=== PATIENT | male | born 1950 | race Caucasian/White ===

== ENCOUNTER 2020-09-07 18:31 | Observation (INO) | payer OTHER ==
[~2020-09-07] VITALS: Ht 185.4 cm; Wt 90.0 kg
--- NOTE | 2020-09-07 18:45 | NUR ---
PT TO ROOM 16 VIA WHEELCHAIR. BEDSIDE TRIAGE COMPLETED
--- NOTE | 2020-09-07 19:45 | NUR ---
NO CHANGE IN EXAM. LABS PENDING. NAD.
[2020-09-07 20:19] LABS: HEMATOCRIT 44.5 % (39.0-50.0); HEMOGLOBIN 14.9 g/dl (14.0-18.0); IMMATURE GRANULOCYTES 0.6 % (0.0-5.0); MEAN CORPUSCULAR HGB 30.7 pG CALC (26.0-32.0); MEAN CORPUSCULAR HGB CONC 33.5 g/dL CAL (32.0-36.0); NEUT# 10.84 thou/uL (1.82-7.42); RED BLOOD COUNT 4.85 mill/uL (4.70-6.10); RED CELL DISTRI WIDTH 13.2 % (11.5-15.5)
[2020-09-07 20:21] LABS: MEAN CELL VOLUME 91.8 fL CALC (80.0-100.0)
[2020-09-07 20:40] LABS: D-DIMER 0.6 mg/L (0.19-0.60)
[2020-09-07 20:43] LABS: ALKALINE PHOSPHATASE 69 u/l (38-126); ANION GAP 16 (6-22 (CALC)); BUN 20 mg/dL (8-23); BUN/CREATININE RATIO 22 (12-20 (CALC)); CARBON DIOXIDE 24 mmol/l (22-30); CHLORIDE 98 mmol/l (95-108); CREATININE 0.9 mg/dL (0.7-1.3); GFR > 60 ML/MIN (>=60 (CALC)); GFR FOR AFR.AMER. > 60 ML/MIN (>=60 (CALC)); LIPASE 92 u/l (23-300); POTASSIUM 4.6 mmol/l (3.5-5.1); SGOT/AST 74 u/l (19-48); SODIUM 134 mmol/l (137-146); TOTAL PROTEIN 7.6 g/dL (6.3-8.2)
--- NOTE | 2020-09-07 20:45 | NUR ---
RESTING QUIETLY. AWAITING TEST RESULTS.
[2020-09-07 20:47] LABS: ACT PARTIAL THROMBO TIME 30.3 SECONDS (20.0-32.5)
[2020-09-07 20:54] LABS: BILIRUBIN, TOTAL 0.5 mg/dL (0.0-1.4); C-REACTIVE PROTEIN 23.9 mg/dL (0-0.9); PROTHROMBIN TIME 10.4 SECONDS (9.0-12.5)
--- NOTE | 2020-09-07 21:49 | NUR ---
DISCUSSED CURRENT ADMISSION AND MEDICATION PLANS.
[2020-09-07 21:56] LABS: URINE BILIRUBIN - DIPSTICK NEGATIVE (NEGATIVE); URINE BLOOD DIPSTICK NEGATIVE (NEGATIVE); URINE COLOR YELLOW; URINE GLUCOSE - DIPSTICK >=1000 mg/dL (NEGATIVE); URINE KETONE 15 mg/dL (NEGATIVE); URINE LEUK ESTERASE NEGATIVE (NEGATIVE); URINE NITRITE - DIPSTICK NEGATIVE (Negative); URINE PROTEIN - DIPSTICK NEGATIVE (NEG-TRACE); URINE UROBILINOGEN - DIPSTICK 0.2 E.U./dL (0.2)
--- NOTE | 2020-09-07 22:15 | NUR ---
RESTING QUIETLY AWAITING DISPO.
--- NOTE | 2020-09-07 22:50 | NUR ---
Admission Note Report Given to: GEOFF JIMENEZ Transported by: X Wheelchair Stretcher Transported with: X Nurse Transporter X Patent IV O2 X Assistant Store Manager Location: ICU X [facility]
--- NOTE | 2020-09-07 22:50 | NUR ---
TELEPHONE REPORT RECEIVED FROM Mary AIKEN RN IN ED. ROOM 289 PREPARED TO RECEIVE PT FROM ED.
--- NOTE | 2020-09-07 23:00 | NUR ---
PT ARRIVES TO UNIT @ 2300 VIA WC, ACCOMPANIED BY Mary AIKEN RN. ADMITTED TO ROOM 289.
--- NOTE | 2020-09-07 23:45 | NUR ---
ADMISSION AND PHYSICAL ASSESMENT COMPLETE. PLAN OF CARE REVIEWED. PT VERBALIZES UNDERSTANDING AND DENIES QUESTIONS. FROZEN DINNER TRAY PREPARED AND SERVED TO PT. PT DENIES FURTHER NEEDS. CALL TODD WITHIN REACH. AGREES TO CALL PRN.
[2020-09-08] VITALS: BP 135/84
[2020-09-08 04:00] VITALS: BP 124/55
--- NOTE | 2020-09-08 04:23 | NUR ---
PT LAYING IN BED WITH EYES CLOSED, NO APPARENT DISTRESS, APPEARS TO BE SLEEPING COMFORTABLY. RESPIRATIONS REGULAR AND UNLABORED. CALL TODD REMAINS WITHIN REACH.
[2020-09-08 05:26] LABS: MEAN CELL VOLUME 93.2 fL CALC (80.0-100.0); MEAN CORPUSCULAR HGB 31.1 pG CALC (26.0-32.0); MEAN CORPUSCULAR HGB CONC 33.3 g/dL CAL (32.0-36.0); NEUT# 9.62 thou/uL (1.82-7.42); RED BLOOD COUNT 5.15 mill/uL (4.70-6.10); RED CELL DISTRI WIDTH 13.2 % (11.5-15.5)
[2020-09-08 05:57] LABS: ALKALINE PHOSPHATASE 79 u/l (38-126); BILIRUBIN, TOTAL 0.6 mg/dL (0.0-1.4); BUN 18 mg/dL (8-23); BUN/CREATININE RATIO 24 (12-20 (CALC)); CARBON DIOXIDE 21 mmol/l (22-30); CHLORIDE 100 mmol/l (95-108); CREATININE 0.8 mg/dL (0.7-1.3); GFR > 60 ML/MIN (>=60 (CALC)); GFR FOR AFR.AMER. > 60 ML/MIN (>=60 (CALC)); SGOT/AST 88 u/l (19-48); SODIUM 136 mmol/l (137-146); TOTAL PROTEIN 7.4 g/dL (6.3-8.2)
[2020-09-08 05:58] LABS: ANION GAP 20 (6-22 (CALC))
[2020-09-08 06:09] LABS: POTASSIUM 5.4 mmol/l (3.5-5.1)
[2020-09-08 07:30] VITALS: BP 147/61
--- NOTE | 2020-09-08 07:30 | NUR ---
PATIENT IN BED ALERT AND ORIENTED AT THIS TIME DENIES ANY NEEDS OR PAIN. MADELINE IS NOT ON O2 CURRENTLY AND HIS SPO2 ON ROOM AIR IS 92%. PATIENT TELE MONITOR IS IN PLACE CALL LIGHT WITHIN REACH AND SIDERAILS UP X 2.
--- NOTE | 2020-09-08 11:57 | NUR ---
PATIENT SITTING UP AT BEDSIDE DENIES ANY PAIN AT THIS TIME OR NEEDS. CALL LIGHT WITHIN REACH SIDERAILS UP X 2.
[2020-09-08] MEDS ORDERED: DEXAMETHASON6 MG PO (12:48)
[2020-09-08] MEDS ORDERED: ASPIRIN 81 LOW81 MG PO (12:48)
[2020-09-08] MEDS ORDERED: ZITHROMAX250 MG PO (12:48)
[2020-09-08] MEDS ORDERED: AMOX/K CLAV875 M1 PO (12:57)
[2020-09-08] MEDS ORDERED: METFORMIN HYD1000 MG PO (13:25)
[2020-09-08] MEDS ORDERED: GLIPIZIDE ER10 M1 PO (13:28)
[2020-09-08] MEDS ORDERED: LEVOTHYROXIN50 MCG PO (13:29)
[2020-09-08] MEDS ORDERED: DOFETILIDE500 MCG PO (13:31)
[2020-09-08] MEDS ORDERED: LIPITOR20 MG PO (13:31)
[2020-09-08] MEDS ORDERED: LISINOPRIL2.5 MG PO (13:32)
--- NOTE | 2020-09-08 14:00 | NUR ---
PATIENT DISCHARGED AT THIS TIME. PATIENT VERBALIZES UNDERSTANDING OF D/C INSTRUCTIONS.
--- NOTE | 2020-09-08 15:04 | NUR ---
Discharge instructions given. Patient verbalizes understanding of same. Discharged in stable condition via Wheelchair to Home with spouse. All belongings sent with pt.
== END 2020-09-08 15:03 | disposition home or self-care (01) | DRG 177 ==
LOC: ED 18:31 → ED-I 19:44 → ED 22:19 → MS2 22:20
PROVIDERS: ADMIT Internal Medicine; ATTEND Internal Medicine
DX: U07.1 COVID-19 (principal); J12.89 Other viral pneumonia; R53.83 Other fatigue; R53.1 Weakness; I10 Essential (primary) hypertension; E11.9 Type 2 diabetes mellitus without complications; I48.91 Unspecified atrial fibrillation
CPT/HCPCS: J1650; Q9967

== ENCOUNTER 2020-09-13 10:25 | Observation (INO) | payer OTHER ==
[~2020-09-13] VITALS: Ht 185.4 cm; Wt 80.7 kg
[~2020-09-13 10:25] MED LIST: AMOX/K CLAV875 M1 PO; ASPIRIN 81 LOW81 MG PO; DEXAMETHASON6 MG PO; DOFETILIDE500 MCG PO; GLIPIZIDE ER10 M1 PO; LEVOTHYROXIN50 MCG PO; LIPITOR20 MG PO; LISINOPRIL2.5 MG PO; METFORMIN HYD1000 MG PO; ZITHROMAX250 MG PO
--- NOTE | 2020-09-13 10:36 | NUR ---
PATIENT REFUSED WHEELCHAIR AND AMBULATED TO ROOM FOR BEDSIDE TRIAGE.
[2020-09-13 11:10] LABS: HEMATOCRIT 46.4 % (39.0-50.0); HEMOGLOBIN 15.6 g/dl (14.0-18.0); IMMATURE GRANULOCYTES 1.6 % (0.0-5.0); MEAN CORPUSCULAR HGB 30.6 pG CALC (26.0-32.0); MEAN CORPUSCULAR HGB CONC 33.6 g/dL CAL (32.0-36.0); NEUT# 10.65 thou/uL (1.82-7.42); RED BLOOD COUNT 5.1 mill/uL (4.70-6.10); RED CELL DISTRI WIDTH 12.7 % (11.5-15.5)
--- NOTE | 2020-09-13 11:12 | NUR ---
PT STATES THAT HE IS COVID + AND HAS BEEN EXPERIANCING INCREASE SOB. PT AFIBRILE WITH CRACKLES IN LOWER LUNGS BILAT. AOX4. DENIES ANY COUGH OR OTHER S/S EXCEPT FOR A FEVER A FEW DAYS AGO. CALL LIGHT WITHIN REACH. AT BEDSIDE. WILL CONTINUE TO MONITOR
[2020-09-13] MEDS ORDERED: JARDIANCE25 MG PO (11:26)
[2020-09-13] MEDS ORDERED: LIPITOR40 M1 PO (11:26)
[2020-09-13] MEDS ORDERED: ZINC50 M1 PO (11:26)
[2020-09-13] MEDS ORDERED: METOPROL TAR25 MG PO (11:27)
[2020-09-13] MEDS ORDERED: CHOLECALCIF (11:27)
[2020-09-13 11:30] LABS: ALBUMIN 3.9 g/dL (3.2-5.0); ALKALINE PHOSPHATASE 74 u/l (38-126); BUN 27 mg/dL (8-23); BUN/CREATININE RATIO 32 (12-20 (CALC)); CARBON DIOXIDE 19 mmol/l (22-30); CHLORIDE 102 mmol/l (95-108); CREATININE 0.8 mg/dL (0.7-1.3); GFR > 60 ML/MIN (>=60 (CALC)); GFR FOR AFR.AMER. > 60 ML/MIN (>=60 (CALC)); SGOT/AST 76 u/l (19-48); SODIUM 134 mmol/l (137-146); TOTAL PROTEIN 7.5 g/dL (6.3-8.2)
[2020-09-13 11:33] LABS: ANION GAP 17 (6-22 (CALC))
[2020-09-13 11:40] LABS: MYOGLOBIN 62 ng/mL (0 - 121)
--- NOTE | 2020-09-13 12:20 | NUR ---
MD AT BEDSIDE TO DISCUSS RESULTS AND PLAN OF CARE.
[2020-09-13 12:29] LABS: URINE BILIRUBIN - DIPSTICK NEGATIVE (NEGATIVE); URINE BLOOD DIPSTICK NEGATIVE (NEGATIVE); URINE COLOR YELLOW; URINE GLUCOSE - DIPSTICK >=1000 mg/dL (NEGATIVE); URINE KETONE NEGATIVE (NEGATIVE); URINE LEUK ESTERASE NEGATIVE (NEGATIVE); URINE NITRITE - DIPSTICK NEGATIVE (Negative); URINE PROTEIN - DIPSTICK NEGATIVE (NEG-TRACE); URINE UROBILINOGEN - DIPSTICK 0.2 E.U./dL (0.2)
--- NOTE | 2020-09-13 13:30 | NUR ---
THE FIRST BOLUS OF FLUID HAS BEEN COMPLETED AND SECOND LACTIC WAS DRAWN. RESULTS ARE THAT LACTIC HAS DECREASED. PT UPDATED ON PROGRESS AND PLAN OF CARE. HE IS AWARE OF PENDING ADMISSION.
--- NOTE | 2020-09-13 14:29 | NUR ---
GAVE REPORT TO JUAN
--- NOTE | 2020-09-13 14:39 | NUR ---
PT HAS ARRIVED VIA STRETCHER WITH STAFF.
--- NOTE | 2020-09-13 14:40 | NUR ---
PT TRANSPORTED TO MED SURG VIA STRETCHER STABLE AND IN NO DISTRESS. CARE ASSUMED TO JUAN. Admission Note Report Given to: JUAN Transported by: Wheelchair X Stretcher Transported with: X Nurse Transporter X Patent IV O2 X Sas Etl Developer Location: ICU X [facility]
--- NOTE | 2020-09-13 14:45 | NUR ---
ASSESSMENT IS COMPLETED: IV SITE IS FREE FROM REDNESS OR EDEMA. HR IS REG,PULSES ARE STRONG X4, ABD IS SOFT WITH ACTIVE BS, BREATH SOUNDS ARE DIMINISHED AND CRACKLES. TELE MONITOR IN PLACE.,
[2020-09-13 15:00] VITALS: BP 146/82
--- NOTE | 2020-09-13 15:22 | NUR ---
PT WAS OPENING A BOTTLE OF MOUTHWASH WITH HIS TEETH AND SLICED HIS BOTTOM LIP A LITTLE BIT.
--- NOTE | 2020-09-13 17:04 | NUR ---
BLEEDING HAS DECREASED. ON HIS LIP INFORMED ARPN RE: SPLIT LIP. NOT DEEP. JUST TOP LAYER SKIN.
--- NOTE | 2020-09-13 19:13 | NUR ---
FAMILY CALLED AND INQUIRED ABOUT PT AND ASKING ABOUT THE LIP. EXPLAINED FOR THE PT TO KEEP PRESSURE ON HIS LIP TO STOP THE BLEEDING. "NOT OOZING JUST SMALL AMOUNTS".
[2020-09-13 20:00] VITALS: BP 160/84
--- NOTE | 2020-09-13 21:00 | NUR ---
PATIENT RESTING IN BED AT THIS ITME-AWAKE ALERT AND ORIENTED WITH TISSUE TO HIS BOTTOM LIP-INJURED HIS LIP OPENING THE MOUTHWASH PER PATIENT. PROVIDED PATIENT WITH GAUIZE PAD AND ICE PACK TO BE USED FOR LOWEWR LIP. PATIENT IS AWAKE ALERT AND ORIENTEDX3. NO OTHER COMPLAINTS OTHER THAN HIS LOWER LIP. PATIENT WITH O2 SAT OF 93-94% ON ROOM AIR. WAS HOSPITALIZED LAST WEEK WITH COVID AND IS BACK BECAUSE HIS THOUGHT HIS O2 SATS AT HOME WERE TOO LOW. PATIENT STATES THAT HE HAS BEEN WALKING DAILY AND DOES BECOME SOB SOMETIMES WHEN HE GET HOME AFTER WALKING A MILE. TELE MONITOR IN PLACE. LUNGS WITH CRACKLES IN THE BASES. NO COUGH. VOIDING QS YELLOW URINE IN URINAL. STATES THAT HE HAD BM TODAY. BLOOD SUGAR WAS 294 TONIGHT. SAFETY PRECAUTIONS REINFORCED. CALL LIGHT IN REACH. WILL CONT TO MONITOR.
--- NOTE | 2020-09-13 23:15 | NUR ---
PATIENT RESTING IN BED-CONT TO USE COLD PACK TO LOWER LIP FOR SMALL AMT OF BLEEDING. COVERED WITH HUMALOG INSULIN 5UNITS PER SLIDING SCALE COVERAGE ORDER. CALL LIGHT IN REACH. WILL CONT TO MONITOR.
[2020-09-14] VITALS: BP 169/82
--- NOTE | 2020-09-14 01:00 | NUR ---
PATIENT APPEARS SLEEPING AT THIS TIME WITH EYES CLOSED AND RESP EVEN AND UNLABORED. TELE MONITOR IN PLACE. SALINE LOCK TO LEFT AC INTACT. CALL LIGHT IN REACH. WILL CONT TO MONITOR.
[2020-09-14 04:00] VITALS: BP 169/83
--- NOTE | 2020-09-14 04:00 | NUR ---
PATIENT RESTING IN BED-APPEARS SLEEPING AT THIS TIME. RESPS ARE EVEN AND UNLABORED. TELE MONITOR IN PLACE. CALL LIGHT IN REACH. WILL CONT TO MONITOR.
[2020-09-14 06:07] LABS: HEMATOCRIT 42.8 % (39.0-50.0); HEMOGLOBIN 14.7 g/dl (14.0-18.0); IMMATURE GRANULOCYTES 2.1 % (0.0-5.0); MEAN CELL VOLUME 90.7 fL CALC (80.0-100.0); MEAN CORPUSCULAR HGB 31.1 pG CALC (26.0-32.0); MEAN CORPUSCULAR HGB CONC 34.3 g/dL CAL (32.0-36.0); NEUT# 9.04 thou/uL (1.82-7.42); RED BLOOD COUNT 4.72 mill/uL (4.70-6.10); RED CELL DISTRI WIDTH 12.5 % (11.5-15.5)
[2020-09-14 06:29] LABS: BUN 26 mg/dL (8-23); BUN/CREATININE RATIO 34 (12-20 (CALC)); C-REACTIVE PROTEIN 1.1 mg/dL (0-0.9); CHLORIDE 102 mmol/l (95-108); CREATININE 0.8 mg/dL (0.7-1.3); GFR > 60 ML/MIN (>=60 (CALC)); GFR FOR AFR.AMER. > 60 ML/MIN (>=60 (CALC)); POTASSIUM 4.6 mmol/l (3.5-5.1); SODIUM 135 mmol/l (137-146)
[2020-09-14 06:30] LABS: ANION GAP 12 (6-22 (CALC)); CARBON DIOXIDE 26 mmol/l (22-30)
[2020-09-14 07:52] VITALS: BP 147/72
--- NOTE | 2020-09-14 07:52 | NUR ---
RECIEVED REPORT FROM GEOFF GUTIÉRREZ. PT RESTING IN SEMI FOWLERS POSITION UPON ENTERING ROOM. INTRODUCED SELF TO PT AND DISCUSSED POC. PT IS A/O X3. ASSESSMENT AND VITALS OBATINED. BP 147/72, HR 64, O2 94% ON ROOM AIR. RESPIRATIONS ARE EVEN AND UNLABORED. LUNG SOUNDS CLEAR. HEART RHYTHM NORMAL WITH TELE IN PLACE. BOWEL SOUNDS ACTIVE IN ALL QUADRANTS. #20G IN LAC FLUSHED, SITE APPEARS HEALTHY AND PATENT. RADIAL AND PEDAL PULSES STRONG. SKIN WARM AND INTACT. PT DENIES OF ANY PAINS. I.S AT BEDSIDE.PT EDUCATED ON USAGE. PT VERBALIZED UNDERSTANDING. ALL SFAETY AND ISOLATION PRECAUTIONS ARE IN PLACE. WILL CONTINUE TO MONITOR
[2020-09-14 11:15] VITALS: BP 136/79
--- NOTE | 2020-09-14 11:21 | NUR ---
WALK TEST COMPLETED. PT O2 SAT 91% ON ROOM AIR AT REST. O2 SAT 87% WHILE WALKING WITH NO OXYGEN. 2L NC APPLIED. PT SAT 96% ON 2L NC AT REST. RESPIRATIONS ARE EVEN AND UNLABORED. PT COMPLAINS OF "SLIGHT SOB." PT DENIES OF ANY PAINS OR DISCOMFORTS AT THIS TIME. ALL SAFETY AND ISOLATION PRECAUTIONS ARE IN PLACE WITH CALL LIGHT IN REACH. WILL CONTINUE TO MONITOR.
--- NOTE | 2020-09-14 12:10 | NUR ---
UPDATE PROVIDED TO , PASSCODE PROVIDED.
[2020-09-14] MEDS ORDERED: OXY1 (14:57)
--- NOTE | 2020-09-14 15:31 | NUR ---
DESIGN ARCHITECT NOTFIED BY THAT PT IS UNABLE TO GET OXYGEN FROM [facility]. [facility] DESIGN ARCHITECT TO BE NOTFIED FROM WHEN OXYGEN IS OBTAINED. PT AND UPDATE OF D/C. VERBALIZATION FROM BOTH. ALL SAFETY PRECAUTIONS IN PLACE WITH CALL LIGHT IN REACH. WILL CONTINUE TO MONITOR.
[2020-09-14 16:00] VITALS: BP 165/82
--- NOTE | 2020-09-14 16:34 | NUR ---
KNIFE GRINDER INFORMED THAT PT AGREED TO PAY FOR OXYGEN OUT OF POCKET AND FOLLOW UP WITH [facility] FOR [facility] AND [facility]. PT EDUCATED ON DISCHARGE INSTRUCTIONS AND OXYGEN. PT VERBALIZED UNDERSTANDING.IV REMOVED WITH CATHATER STILL INTACT. PT TOELRATED WELL. TELE MONITORING REMOVED. ER NOTIFIED. WAITING FOR TRANSPORTATION. WILL CONTINUE TO MONITOR
--- NOTE | 2020-09-14 17:23 | NUR ---
Discharge instructions given. Patient verbalizes understanding of same. Discharged in stable condition via Wheelchair to Home with staff. All belongings sent with pt. PT DISCHARGED IN STABLE CONDITION VIA WHEELCHAIR ACCOMPAINED BY STAFF WITH ALL BELONGINGS AND OXYGEN,
== END 2020-09-14 17:25 | disposition home health service (06) | DRG 177 ==
LOC: ED 10:25 → ED-I 11:05 → ED 13:30 → MS2 13:31
PROVIDERS: Emergency Medicine; ADMIT Internal Medicine; ATTEND Internal Medicine
DX: U07.1 COVID-19 (principal); J12.82 Pneumonia due to coronavirus disease 2019; R09.02 Hypoxemia; R53.1 Weakness; I10 Essential (primary) hypertension; E11.9 Type 2 diabetes mellitus without complications; I48.91 Unspecified atrial fibrillation; Z79.84 Long term (current) use of oral hypoglycemic drugs
CPT/HCPCS: J1650

== ENCOUNTER 2021-11-06 12:57 | Emergency (ER) | payer OTHER ==
[~2021-11-06] VITALS: Ht 185.4 cm; Wt 88.6 kg
[~2021-11-06 12:57] MED LIST changes: +CHOLECALCIF; +JARDIANCE25 MG PO; +LIPITOR40 M1 PO; +METOPROL TAR25 MG PO; +OXY1; +ZINC50 M1 PO
[2021-11-06] MEDS ORDERED: KEFLEX500 MG PO (14:11)
[2021-11-06 14:26] VITALS: BP 142/70
== END 2021-11-06 14:26 | disposition home or self-care (01) | DRG 605 ==
LOC: ED 12:57
PROC: 0HQ1XZZ Repair Face Skin, External Approach (ICD-10-PCS; principal; 2021-11-06)
DX: S01.81XA Laceration without foreign body of other part of head, initial encounter (principal); I10 Essential (primary) hypertension; E11.9 Type 2 diabetes mellitus without complications; I48.91 Unspecified atrial fibrillation; Y93.H2 Activity, gardening and landscaping; Y92.007 Garden or yard of unspecified non-institutional (private) residence as the place of occurrence of the external cause; Z79.84 Long term (current) use of oral hypoglycemic drugs; W20.8XXA Other cause of strike by thrown, projected or falling object, initial encounter

== ENCOUNTER 2022-09-13 11:15 | Emergency (ER) | payer OTHER ==
[~2022-09-13] VITALS: Ht 185.4 cm; Wt 86.0 kg
[~2022-09-13 11:15] MED LIST changes: +KEFLEX500 MG PO
[2022-09-13] MEDS ORDERED: KEFLEX500 MG PO (12:54)
[2022-09-13 13:18] VITALS: BP 103/57
== END 2022-09-13 13:20 | disposition home or self-care (01) | DRG 605 ==
LOC: ED 11:15
DX: S60.511A Abrasion of right hand, initial encounter (principal); S61.411A Laceration without foreign body of right hand, initial encounter; W29.3XXA Contact with powered garden and outdoor hand tools and machinery, initial encounter

== ENCOUNTER 2022-11-25 05:06 | Observation (INO) | payer OTHER ==
[2022-11-25] VITALS (20 sets, daily range): BP systolic 102–147; BP diastolic 41–65
[~2022-11-25] VITALS: Ht 185.4 cm; Wt 90.6 kg
--- NOTE | 2022-11-25 05:06 | NUR ---
PT ARRIVED VIA EMS, IN ROOM 12 FOR TRI. PT REPORT THAT HE FELL AND IS UNABLE TO RECALL WHAT HAD HAPPENED OR WHAT CAUSED THE FALL.
[2022-11-25 05:51] LABS: BASO% 0.1 % (0-3); EOS% 2.3 % (0-8); HEMATOCRIT 42.7 % (39.0-50.0); HEMOGLOBIN 13.3 g/dl (14.0-18.0); IMMATURE GRANULOCYTES 0.3 % (0.0-5.0); LYMPH% 9.6 % (15-41); MEAN CORPUSCULAR HGB 26.1 pG CALC (26.0-32.0); MEAN CORPUSCULAR HGB CONC 31.1 g/dL CAL (32.0-36.0); MONO% 5.3 % (2-13); NEUT# 10.34 thou/uL (1.82-7.42); NEUT% 82.4 % (42-76); RED BLOOD COUNT 5.1 mill/uL (4.70-6.10); RED CELL DISTRI WIDTH 18.4 % (11.5-15.5)
[2022-11-25 05:52] LABS: MEAN CELL VOLUME 83.7 fL CALC (80.0-100.0)
[2022-11-25 06:07] LABS: ALBUMIN 4.6 g/dL (3.2-5.0); ALKALINE PHOSPHATASE 77 u/l (38-126); ANION GAP 15 (6-22 (CALC)); BILIRUBIN, TOTAL 0.6 mg/dL (0.2-1.3); BUN 27 mg/dL (8-23); BUN/CREATININE RATIO 28 (12-20 (CALC)); CARBON DIOXIDE 24 mmol/l (22-30); CHLORIDE 102 mmol/l (95-108); ETHYL ALCOHOL 0 mg/dl (0-30); GFR FOR AFR.AMER. > 60 ML/MIN (>=60 (CALC)); GFR OTHER RACES > 60 ML/MIN (>=60 (CALC)); POTASSIUM 4.1 mmol/l (3.5-5.1); SGOT/AST 31 u/l (19-48); SODIUM 138 mmol/l (137-146); TOTAL PROTEIN 7.3 g/dL (6.3-8.2)
--- NOTE | 2022-11-25 06:10 | NUR ---
PT IN ROOM GETTING READY FOR DOCTOR TO REPAIR HIS LACERATION TO THE EYE. DOCTOR HAD TO STEP AWAY FOR A CODE CALL. PT AND UNDERSTANDS
--- NOTE | 2022-11-25 07:28 | NUR ---
PT TOLERATED PROCEDURE WELL, ICE PACK PROVIDED, PT IS RESTING WITH EYE CLOSED. VSS, NAD. IN ROOM WITH PT.
[2022-11-25] MEDS ORDERED: METOPROL TAR25 MG PO (07:53)
[2022-11-25] MEDS ORDERED: GABAPENTIN100 MG PO (07:54)
[2022-11-25] MEDS ORDERED: METFORMIN500 M2 PO (07:55)
--- NOTE | 2022-11-25 08:02 | NUR ---
at bedside. meds reconciled.
--- NOTE | 2022-11-25 08:19 | NUR ---
PT BROUGHT UP FROM ED. PT TRANSFERRED HIMSELF TO BED.
--- NOTE | 2022-11-25 08:19 | NUR ---
pt transferred to med surg. able to walk to bed from stretcher without assistance. bedside report given to rosalind.
--- NOTE | 2022-11-25 20:02 | NUR ---
PT AXO4 AT BEDSIDE, DENY ANY PAIN AT THE MOMENT, CALL LIGHT WITHIN REACHED REACHED, WILL CONT TO MONITOR
[2022-11-26 00:37] VITALS: BP 120/64
[2022-11-26 03:31] VITALS: BP 121/56
[2022-11-26 05:28] VITALS: BP 115/56
[2022-11-26 05:45] LABS: HEMATOCRIT 42.3 % (39.0-50.0); HEMOGLOBIN 13.4 g/dl (14.0-18.0); MEAN CELL VOLUME 84.3 fL CALC (80.0-100.0); MEAN CORPUSCULAR HGB 26.7 pG CALC (26.0-32.0); MEAN CORPUSCULAR HGB CONC 31.7 g/dL CAL (32.0-36.0); RED BLOOD COUNT 5.02 mill/uL (4.70-6.10); RED CELL DISTRI WIDTH 18.3 % (11.5-15.5)
[2022-11-26 05:54] LABS: ALBUMIN 4.6 g/dL (3.2-5.0); ALKALINE PHOSPHATASE 55 u/l (38-126); ANION GAP 14 (6-22 (CALC)); BILIRUBIN, TOTAL 0.8 mg/dL (0.2-1.3); BUN 26 mg/dL (8-23); BUN/CREATININE RATIO 27 (12-20 (CALC)); CARBON DIOXIDE 27 mmol/l (22-30); CHLORIDE 102 mmol/l (95-108); CREATININE 0.9 mg/dL (0.7-1.3); GFR FOR AFR.AMER. > 60 ML/MIN (>=60 (CALC)); GFR OTHER RACES > 60 ML/MIN (>=60 (CALC)); MAGNESIUM 2.3 mg/dL (1.6-2.3); POTASSIUM 4.7 mmol/l (3.5-5.1); SGOT/AST 38 u/l (19-48); SODIUM 138 mmol/l (137-146); TOTAL PROTEIN 7.2 g/dL (6.3-8.2)
--- NOTE | 2022-11-26 06:00 | NUR ---
PT SLEPT MOST OF THE NIGHT, VITALS STABLE, OZIEL LIGHT WITHIN REACHED, WILL CONT TO MONITOR
--- NOTE | 2022-11-26 07:30 | NUR ---
REPORT RECEIVED FROM NIGHT NURSE. PT AMBULATING TO BATHROOM INDEPENDENTLY; ALERT AND ORIENTED X 4. DENIES PAIN, BUT REPORTS TENDERNESS TO LEFT EYE; SWELLING AND PURPLE BRUISING AROUND SUTURES TO LEFT EYE. PT STATES THAT HE CAN BEGIN TO OPEN HIS EYE TODAY AND FEELS LIKE THERE IS IMPROVEMENT. WARM WASH CLOTH PROVIDED TO HELP CLEAN OUT EYE DRAININAGE. TELE IN PLACE. RESPIRATIONS EVEN AND UNLABORED. IV FLUIDS INFUSING AT 100 ML/HR; IV SITE APPEARS HEALTHY. PLAN OF CARE REVIEWED; PT ENCOURAGED TO VERBALIZE CONCERNS; STATES UNDERSTANDING. SAFETY MEASURES IN PLACE; CALL LIGHT WITHIN REACH.
[2022-11-26 09:40] VITALS: BP 131/64
[2022-11-26 10:15] VITALS: BP 119/53
--- NOTE | 2022-11-26 11:20 | NUR ---
REPORT RECEIVED FROM Elina FONTANA RN AT BEDSIDE. CARE OF PT ASSUMED AT THIS TIME. PT IN SHOWER.
--- NOTE | 2022-11-26 11:39 | NUR ---
PT BACK TO BED AFTER SHOWER. IV RECONNECTED. TELEMETRY RE-APPLIED. PT REQUESTING INFORMATION ABOUT DISCHARGE, DENIES ANY OTHER NEEDS AT THIS TIME. CALL TODD WITHIN REACH, AGREES TO CALL PRN.
--- NOTE | 2022-11-26 11:44 | NUR ---
DISCUSSED PT'S REQUEST FOR DISCHARGE WITH DR. MORAN.
[2022-11-26] MEDS ORDERED: LORTAB 5/3255 MG PO (12:00)
--- NOTE | 2022-11-26 12:30 | NUR ---
DISCHARGE INSTRUCTIONS REVIEWED VERBALLY WITH PT WITH A SUCCESFUL TEACH-BACK FROM PATIENT. PATIENT VERBALIZES UNDERSTANDING OF ALL PROVIDED INSTRUCTIONS AND DENIES QUESTIONS. PRINTED DISCHARGE PACKET PROVIDED. PT PENDING KNIFE OPERATOR FROM SPOUSE.
--- NOTE | 2022-11-26 12:54 | NUR ---
PHYSICAL SCRIPT PROVIDED BY DR. MORAN FOR HYDROCODONE. SCRIPT PHOTOCOPIED FOR CHART AND PROVIDED TO PT.
--- NOTE | 2022-11-26 12:59 | NUR ---
PT'S SPOUSE ARRIVES FOR PT. PT TAKEN DOWNTO LOBBY VIA WHEELCHAIR ACCOMPANIED BY Siddharth HOLLAND CNA AND SPOUSE. PT HAS ALL BELONGINGS AND DISCHARGE PAPERWORK.
== END 2022-11-26 13:00 | disposition home or self-care (01) | DRG 312 ==
LOC: ED 05:06 → ED-I 06:55 → ED 07:22 → MS2 07:23
PROVIDERS: Emergency Medicine; Internal Medicine; ADMIT Internal Medicine; ATTEND Internal Medicine
PROC: 0HQ1XZZ Repair Face Skin, External Approach (ICD-10-PCS; principal; 2022-11-25)
DX: R55 Syncope and collapse (principal); S01.111A Laceration without foreign body of right eyelid and periocular area, initial encounter; S00.83XA Contusion of other part of head, initial encounter; I10 Essential (primary) hypertension; E03.9 Hypothyroidism, unspecified; I48.91 Unspecified atrial fibrillation; E11.9 Type 2 diabetes mellitus without complications; W18.39XA Other fall on same level, initial encounter; Y92.009 Unspecified place in unspecified non-institutional (private) residence as the place of occurrence of the external cause; Z79.84 Long term (current) use of oral hypoglycemic drugs

== ENCOUNTER 2023-03-15 11:44 | Emergency (ER) | payer OTHER ==
[2023-03-15] VITALS (14 sets, daily range): BP systolic 125–150; BP diastolic 58–76
[~2023-03-15] VITALS: Ht 185.4 cm; Wt 86.2 kg
[~2023-03-15 11:44] MED LIST changes: +GABAPENTIN100 MG PO; +LORTAB 5/3255 MG PO; +METFORMIN500 M2 PO
[2023-03-15 12:54] LABS: URINE BILIRUBIN - DIPSTICK NEGATIVE (NEGATIVE); URINE BLOOD DIPSTICK NEGATIVE (NEGATIVE); URINE COLOR YELLOW; URINE GLUCOSE - DIPSTICK >=1000 mg/dL (NEGATIVE); URINE KETONE 15 mg/dL (NEGATIVE); URINE LEUK ESTERASE NEGATIVE (NEGATIVE); URINE PH 5.5 (4.5-8.0); URINE PROTEIN - DIPSTICK NEGATIVE (NEG-TRACE); URINE UROBILINOGEN - DIPSTICK 0.2 E.U./dL (0.2)
[2023-03-15 12:56] LABS: URINE NITRITE - DIPSTICK NEGATIVE (Negative)
[2023-03-15 12:56] LABS: BASO% 0.3 % (0-3); HEMATOCRIT 44.9 % (39.0-50.0); HEMOGLOBIN 14.4 g/dl (14.0-18.0); IMMATURE GRANULOCYTES 0.6 % (0.0-5.0); LYMPH% 31.8 % (15-41); MEAN CELL VOLUME 86.7 fL CALC (80.0-100.0); MEAN CORPUSCULAR HGB 27.8 pG CALC (26.0-32.0); MEAN CORPUSCULAR HGB CONC 32.1 g/dL CAL (32.0-36.0); NEUT# 5.12 thou/uL (1.82-7.42); NEUT% 52.3 % (42-76); RED BLOOD COUNT 5.18 mill/uL (4.70-6.10); RED CELL DISTRI WIDTH 15.1 % (11.5-15.5)
[2023-03-15 13:19] LABS: ALBUMIN 4.9 g/dL (3.2-5.0); ANION GAP 20 (6-22 (CALC)); BILIRUBIN, TOTAL 0.6 mg/dL (0.2-1.3); BUN 25 mg/dL (8-23); BUN/CREATININE RATIO 27 (12-20 (CALC)); CARBON DIOXIDE 23 mmol/l (22-30); CHLORIDE 103 mmol/l (95-108); CREATININE 0.9 mg/dL (0.7-1.3); GFR FOR AFR.AMER. > 60 ML/MIN (>=60 (CALC)); GFR OTHER RACES > 60 ML/MIN (>=60 (CALC)); POTASSIUM 4.4 mmol/l (3.5-5.1); SGOT/AST 34 u/l (19-48); SODIUM 141 mmol/l (137-146); TOTAL PROTEIN 8.2 g/dL (6.3-8.2)
[2023-03-15 13:20] LABS: ALKALINE PHOSPHATASE 102 u/l (38-126)
== END 2023-03-15 14:50 | disposition left against medical advice (07) | DRG 312 ==
LOC: ED 11:44
PROVIDERS: Family Medicine
DX: R55 Syncope and collapse (principal); I48.91 Unspecified atrial fibrillation; I10 Essential (primary) hypertension; E11.9 Type 2 diabetes mellitus without complications; Z53.29 Procedure and treatment not carried out because of patient's decision for other reasons; Z79.84 Long term (current) use of oral hypoglycemic drugs; Z20.822 Contact with and (suspected) exposure to COVID-19

== ENCOUNTER 2023-09-22 12:22 | Observation (INO) | payer OTHER ==
[~2023-09-22] VITALS: Ht 2.5 cm; Wt 88.0 kg
[2023-09-22] VITALS (35 sets, daily range): BP systolic 84–150; BP diastolic 62–104
[2023-09-22 14:07] LABS: URINE BILIRUBIN - DIPSTICK Negative (NEGATIVE); URINE BLOOD DIPSTICK Negative (NEGATIVE); URINE GLUCOSE - DIPSTICK >=1000 mg/dL (NEGATIVE); URINE KETONE Negative (NEGATIVE); URINE LEUK ESTERASE Negative (NEGATIVE); URINE NITRITE - DIPSTICK Negative (Negative); URINE PROTEIN - DIPSTICK Negative (NEG-TRACE); URINE UROBILINOGEN - DIPSTICK 0.2 E.U./dL (0.2)
[2023-09-22 14:11] LABS: URINE COLOR Yellow
[2023-09-22 14:19] LABS: BASO% 0.4 % (0-3); EOS% 3.1 % (0-8); HEMATOCRIT 48.8 % (39.0-50.0); IMMATURE GRANULOCYTES 0.3 % (0.0-5.0); MEAN CORPUSCULAR HGB 31.1 pG CALC (26.0-32.0); MEAN CORPUSCULAR HGB CONC 33.6 g/dL CAL (32.0-36.0); MONO% 14.5 % (2-13); NEUT# 4.73 thou/uL (1.82-7.42); NEUT% 60.7 % (42-76); RED BLOOD COUNT 5.28 mill/uL (4.70-6.10); RED CELL DISTRI WIDTH 13.7 % (11.5-15.5)
[2023-09-22 14:22] LABS: HEMOGLOBIN 16.4 g/dl (14.0-18.0); MEAN CELL VOLUME 92.4 fL CALC (80.0-100.0)
[2023-09-22 14:28] LABS: ALBUMIN 4.8 g/dL (3.2-5.0); ALKALINE PHOSPHATASE 78 u/l (38-126); ANION GAP 17 (6-22 (CALC)); BILIRUBIN, TOTAL 0.9 mg/dL (0.2-1.3); BUN 25 mg/dL (8-23); BUN/CREATININE RATIO 29 (12-20 (CALC)); CARBON DIOXIDE 21 mmol/l (22-30); CHLORIDE 103 mmol/l (95-108); CREATININE 0.8 mg/dL (0.7-1.3); GFR FOR AFR.AMER. > 60 ML/MIN (>=60 (CALC)); GFR OTHER RACES > 60 ML/MIN (>=60 (CALC)); POTASSIUM 4.4 mmol/l (3.5-5.1); SGOT/AST 43 u/l (19-48); SODIUM 137 mmol/l (137-146); TOTAL PROTEIN 7.9 g/dL (6.3-8.2)
[2023-09-22 14:34] LABS: ETHYL ALCOHOL 0 mg/dl (0-30)
[2023-09-22 14:35] LABS: ACT PARTIAL THROMBO TIME 25.4 SECONDS (20.0-32.5); INTERNATIONAL NORMALIZED RATIO 1.2 RATIO (0.7-1.3)
[2023-09-22 14:43] LABS: D-DIMER 0.24 mg/L (0.19-0.60)
[2023-09-22] MEDS ORDERED: LISINOPRIL10 MG PO (19:03)
[2023-09-22] MEDS ORDERED: AMLODIPINE BESYL5 MG PO (19:04)
[2023-09-23 04:29] LABS: BASO% 0.4 % (0-3); EOS% 4.3 % (0-8); HEMATOCRIT 45.2 % (39.0-50.0); HEMOGLOBIN 15.5 g/dl (14.0-18.0); IMMATURE GRANULOCYTES 0.7 % (0.0-5.0); LYMPH% 26.6 % (15-41); MEAN CELL VOLUME 92.2 fL CALC (80.0-100.0); MEAN CORPUSCULAR HGB 31.6 pG CALC (26.0-32.0); MEAN CORPUSCULAR HGB CONC 34.3 g/dL CAL (32.0-36.0); MONO% 15.2 % (2-13); NEUT# 3.98 thou/uL (1.82-7.42); NEUT% 52.8 % (42-76); RED BLOOD COUNT 4.9 mill/uL (4.70-6.10); RED CELL DISTRI WIDTH 13.8 % (11.5-15.5)
[2023-09-23 04:49] LABS: ALBUMIN 4.2 g/dL (3.2-5.0); ALKALINE PHOSPHATASE 74 u/l (38-126); BILIRUBIN, TOTAL 0.8 mg/dL (0.2-1.3); BUN 22 mg/dL (8-23); BUN/CREATININE RATIO 28 (12-20 (CALC)); CHLORIDE 105 mmol/l (95-108); CHOLESTEROL HDL RATIO 3.2 (<4.4 (CALC)); CREATININE 0.8 mg/dL (0.7-1.3); GFR FOR AFR.AMER. > 60 ML/MIN (>=60 (CALC)); GFR OTHER RACES > 60 ML/MIN (>=60 (CALC)); HDL CHOLESTEROL 37 mg/dL (39.0-59.0); MAGNESIUM 2.2 mg/dL (1.6-2.3); POTASSIUM 4.3 mmol/l (3.5-5.1); SGOT/AST 34 u/l (19-48); SODIUM 138 mmol/l (137-146); TOTAL PROTEIN 6.7 g/dL (6.3-8.2); TOTAL TRIGLYCERIDES 118 mg/dl (0-149); VLDL CHOLESTROL 24 mg/dl (0-38 (CALC))
[2023-09-23 04:53] LABS: ANION GAP 11 (6-22 (CALC)); CALCULATED LDLCHOLESTEROL 56 mg/dL (62-129 (CALC)); CARBON DIOXIDE 26 mmol/l (22-30); TOTAL CHOLESTEROL 117 mg/dl (0-199)
[2023-09-23 05:00] VITALS: BP 111/58
[2023-09-23 10:10] VITALS: BP 138/81
[2023-09-23 11:48] VITALS: BP 131/89
[2023-09-23] MEDS ORDERED: METOPROL TAR25 MG PO (15:30)
[2023-09-23 16:24] VITALS: BP 131/89
== END 2023-09-23 16:50 | disposition home or self-care (01) | DRG 310 ==
LOC: ED 12:22 → ED-I 13:54 → ED 21:10 → MS2 21:11
PROVIDERS: Family Medicine; ADMIT Student in an Organized Health Care Education/Training Program; ATTEND Student in an Organized Health Care Education/Training Program
DX: R00.0 Tachycardia, unspecified (principal); I48.0 Paroxysmal atrial fibrillation; I10 Essential (primary) hypertension; E11.9 Type 2 diabetes mellitus without complications; E03.9 Hypothyroidism, unspecified; Z79.82 Long term (current) use of aspirin; Z79.84 Long term (current) use of oral hypoglycemic drugs
CPT/HCPCS: J1650

== ENCOUNTER 2024-10-08 13:38 | Emergency (ER) | payer OTHER ==
[~2024-10-08] VITALS: Ht 185.4 cm; Wt 86.0 kg
[~2024-10-08 13:38] MED LIST changes: +AMLODIPINE BESYL5 MG PO; +LISINOPRIL10 MG PO; +MAXITROL0.11 OD; +TRAMADOL HYDROC50 M1 PO
[2024-10-08] MEDS ORDERED: NAPROXEN500 MG PO (13:54)
[2024-10-08 14:10] VITALS: BP 133/77
== END 2024-10-08 14:47 | disposition home or self-care (01) | DRG 566 ==
LOC: ED 13:38
DX: M25.462 Effusion, left knee (principal); I10 Essential (primary) hypertension; E11.9 Type 2 diabetes mellitus without complications; I25.10 Atherosclerotic heart disease of native coronary artery without angina pectoris; I48.91 Unspecified atrial fibrillation; Z95.0 Presence of cardiac pacemaker; Z79.84 Long term (current) use of oral hypoglycemic drugs